=== PATIENT | female | born 1985 | race Caucasian/White ===

== ENCOUNTER 2024-04-23 11:19 | Emergency (ER) | payer MEDICAID ==
[~2024-04-23] VITALS: Ht 154.9 cm; Wt 58.0 kg
[2024-04-23 11:23] VITALS: BP 125/80; PULSE 75; RESP 16; TEMP 98.3; O2SAT 99
[2024-04-23 12:47] LABS: CLARITY URINE TURBID (CLEAR); COLOR URINE YELLOW (YELLOW); GLUCOSE URINE NEGATIVE (NEGATIVE); KETONES URINE NEGATIVE (NEGATIVE); LEUKOCYTE ESTERASE URINE 2+ (NEGATIVE); NITRITE URINE NEGATIVE (NEGATIVE); OCCULT BLOOD URINE TRACE (NEGATIVE); PROTEIN URINE NEGATIVE (NEGATIVE); SPECIFIC GRAVITY URINE 1.021 (1.005-1.030); UROBILINOGEN URINE 0.2 E.U./dL (0.2-1.0)
[2024-04-23] MEDS: ACETAMINOPHEN 500MG TABLET PO ONE (12:55)
[2024-04-23 13:07] LABS: SQUAMOUS EPITHELIAL CELL URINE 3+ /lpf (RARE/1+); WBC URINE TNTC /hpf (0-2)
[2024-04-23 13:09] LABS: BACTERIA URINE 4+
[2024-04-23] MEDS ORDERED: IBUP-2029 MT (13:20)
[2024-04-23] MEDS ORDERED: SULF1TAB48 MT (13:20)
[2024-04-23] MEDS ORDERED: NITR-87 MT (13:31)
== END 2024-04-23 13:33 | disposition home or self-care (01) ==
LOC: ER 11:19
DX: N39.0 Urinary tract infection, site not specified (principal); J45.909 Unspecified asthma, uncomplicated; F41.9 Anxiety disorder, unspecified; F32.A Depression, unspecified; Z88.0 Allergy status to penicillin; Z88.2 Allergy status to sulfonamides; Z98.890 Other specified postprocedural states
CPT/HCPCS: 81003; 81025; 99283

== ENCOUNTER 2024-07-09 14:45 | Emergency (ER) | payer MEDICAID ==
[~2024-07-09] VITALS: Ht 154.9 cm; Wt 60.0 kg
[~2024-07-09 14:45] MED LIST: IBUP-2029 MT; NITR-87 MT
[2024-07-09 14:52] VITALS: TEMP 98.6; O2SAT 97
[2024-07-09] MEDS ORDERED: METOCLOPRAMIDE HCL 10MG TABLET PO ONE (15:45)
[2024-07-09] MEDS ORDERED: MAGNESIUM/ALUMINUM HYDROXIDE/SIMETHICONE 30ML UDC PO ONE (15:45)
[2024-07-09 16:26] LABS: BASOPHILS % 0.5 % (0.0-2.0); EOSINOPHILS % 3.2 % (0.0-5.0); HCG SCREEN NEGATIVE; HEMOGLOBIN. 14.5 g/dL (12.0-16.0); LYMPHOCYTES % 31.7 % (20.0-50.0); MEAN CORPUSCULAR HEMOGLOBIN 29.6 pg (28.0-32.0); MEAN CORPUSCULAR HGB CONC 33.6 g/dL (31.0-37.0); MEAN CORPUSCULAR VOLUME 88.1 fL (81.0-99.0); MEAN PLATELET VOLUME 8.6 fl (7.4-10.4); MONOCYTES % 7.7 % (2.0-8.0); NEUTROPHILS % 56.9 % (40.0-76.0); PLATELET 304 x1000/uL (130-400); RED BLOOD CELL COUNT 4.88 mill/uL (4.2-5.4); RED CELL DISTRIBUTION WIDTH 13.6 % (11.6-14.6); WHITE BLOOD COUNT 7.5 x1000/uL (4.5-11.0)
[2024-07-09 16:37] LABS: CHLORIDE 109 mEq/L (98-107); POTASSIUM 3.7 mEq/L (3.5-5.1); SODIUM 143 mEq/L (136-145)
[2024-07-09 16:39] LABS: CALCIUM 9.3 mg/dL (8.7-10.4); CARBON DIOXIDE 26 mEq/L (21-32)
[2024-07-09 16:44] LABS: CREATININE 0.8 mg/dL (0.6-1.0); GLUCOSE 74 mg/dL (70-105); UREA NITROGEN BLOOD 13 mg/dL (9-23)
[2024-07-09 16:45] LABS: ALANINE AMINOTRANSFERASE 11 IU/L (10-49); ALBUMIN 4.1 g/dL (3.2-4.8); ASPARTATE AMINOTRANSFERASE 14 IU/L (<34)
[2024-07-09 16:46] LABS: BILIRUBIN TOTAL 0.2 mg/dL (0.1-1.0); PROTEIN TOTAL 6.7 g/dL (6.0-8.3)
[2024-07-09 16:49] LABS: BILIRUBIN DIRECT < 0.1 mg/dL (<=3.0)
[2024-07-09] MEDS ORDERED: ONDA-239 PO (17:05)
[2024-07-09] MEDS: METOCLOPRAMIDE HCL 10MG TABLET PO NR (17:32)
[2024-07-09] MEDS: MAGNESIUM/ALUMINUM HYDROXIDE/SIMETHICONE 30ML UDC PO NR (17:32)
[2024-07-09 17:39] VITALS: BP 102/59; PULSE 58; RESP 16; O2SAT 98
== END 2024-07-09 17:44 | disposition home or self-care (01) ==
LOC: ER 14:45
DX: K29.70 Gastritis, unspecified, without bleeding (principal); F41.9 Anxiety disorder, unspecified; J45.909 Unspecified asthma, uncomplicated; K58.0 Irritable bowel syndrome with diarrhea; Z88.0 Allergy status to penicillin; Z88.1 Allergy status to other antibiotic agents; Z88.2 Allergy status to sulfonamides
CPT/HCPCS: 99283; 80076; 80048; 84703; 83690; 85025; 36415; J8597

== ENCOUNTER 2024-11-13 17:47 | Emergency (ER) | payer MEDICAID, OTHER ==
[~2024-11-13] VITALS: Ht 154.9 cm; Wt 62.6 kg
[~2024-11-13 17:47] MED LIST changes: +ONDA-239 PO
[2024-11-13 17:55] VITALS: O2SAT 100
[2024-11-13 18:31] LABS: CLARITY URINE CLOUDY (CLEAR); COLOR URINE YELLOW (YELLOW); GLUCOSE URINE NEGATIVE (NEGATIVE); KETONES URINE TRACE (NEGATIVE); LEUKOCYTE ESTERASE URINE 2+ (NEGATIVE); NITRITE URINE NEGATIVE (NEGATIVE); OCCULT BLOOD URINE 2+ (NEGATIVE); PROTEIN URINE 1+ (NEGATIVE); SPECIFIC GRAVITY URINE 1.033 (1.005-1.030)
[2024-11-13] MEDS ORDERED: CEFP200T13 MT (18:53)
[2024-11-13 19:09] VITALS: BP 112/61; PULSE 85; RESP 16; TEMP 37; O2SAT 97
[2024-11-13 19:18] LABS: BACTERIA URINE 2+
[2024-11-13 19:19] LABS: RBC URINE 25-50 /hpf (0-2); SQUAMOUS EPITHELIAL CELL URINE 1+ /lpf (RARE/1+)
[2024-11-13 19:20] LABS: WBC URINE 25-50 /hpf (0-2)
== END 2024-11-13 19:11 | disposition home or self-care (01) ==
LOC: ER 17:47
DX: N39.0 Urinary tract infection, site not specified (principal); J45.909 Unspecified asthma, uncomplicated; F32.A Depression, unspecified; F41.9 Anxiety disorder, unspecified; Z88.2 Allergy status to sulfonamides; Z88.1 Allergy status to other antibiotic agents; Z88.0 Allergy status to penicillin; Z98.890 Other specified postprocedural states; Z79.899 Other long term (current) drug therapy
CPT/HCPCS: 81003; 81025; 99283

== ENCOUNTER 2025-06-03 15:22 | Emergency (ER) | payer OTHER ==
[~2025-06-03] VITALS: Ht 162.6 cm; Wt 75.0 kg
[~2025-06-03 15:22] MED LIST changes: +CEFP200T13 MT; +IBUP-1455 MT; -IBUP-2029 MT
[2025-06-03 15:29] VITALS: O2SAT 98
[2025-06-03] MEDS ORDERED: IBUP-2028 MT (16:38)
[2025-06-03 16:48] VITALS: BP 122/98; PULSE 98; RESP 18; TEMP 36.9; O2SAT 99
[2025-06-03] MEDS: LIDOCAINE 5% PATCH TOP SCH (16:48)
[2025-06-03] MEDS: KETOROLAC 15MG/ML VIAL IM ONE (16:48)
== END 2025-06-03 16:49 | disposition home or self-care (01) ==
LOC: ER 15:22
DX: M25.512 Pain in left shoulder (principal); M79.602 Pain in left arm; J45.909 Unspecified asthma, uncomplicated; Z88.0 Allergy status to penicillin; Z88.1 Allergy status to other antibiotic agents; Z88.2 Allergy status to sulfonamides; W01.0XXA Fall on same level from slipping, tripping and stumbling without subsequent striking against object, initial encounter; Y93.89 Activity, other specified; Y92.89 Other specified places as the place of occurrence of the external cause; Y99.8 Other external cause status
CPT/HCPCS: 99284; 73030; 73080; 73110; 96372; J1885